=== PATIENT | male | born 1960 | race Caucasian/White ===

== ENCOUNTER 2021-01-18 07:33 | Day surgery (SDC) | payer BC ==
[~2021-01-18] VITALS: Ht 180.3 cm; Wt 107.8 kg
[~2021-01-18 07:33] MED LIST: FLOMAX 0.40.4 MG/CAP PO; NORCO 325 MG-51 TAB PO; ZOFRAN 4MG T4 MG/TAB PO
[2021-01-18 08:11] VITALS: BP 131/83; PULSE 99; TEMP 97.9
[2021-01-18] MEDS ORDERED: INSULIN AS100 UNIT/3 SQ (08:21)
[2021-01-18] MEDS ORDERED: CELEXA40 MG PO (08:21)
[2021-01-18] MEDS ORDERED: COZAAR 50MG50 MG/TAB PO (08:22)
[2021-01-18] MEDS ORDERED: LANTUS SOLOS100 U/ML SQ (08:22)
[2021-01-18] MEDS ORDERED: GLUCOPHAGE500 MG/TAB PO (08:22)
[2021-01-18] MEDS ORDERED: PRINIVIL5 MG PO (08:23)
[2021-01-18] MEDS ORDERED: LOPID 600M600 MG/TAB PO (08:23)
[2021-01-18] MEDS ORDERED: LIPITOR 10MG10 MG PO (08:24)
[2021-01-18] MEDS ORDERED: ZYRTEC ALLERGY10 MG PO (08:26)
[2021-01-18 09:30] VITALS: BP 114/78; PULSE 91; TEMP 97.7
[2021-01-18 09:45] VITALS: BP 116/83; PULSE 93
[2021-01-18 10:00] VITALS: BP 130/87; PULSE 85
--- NOTE | 2021-01-18 12:10 | NUR ---
PT RETURNED FROM ENDO PROCEDURE ROOM INTO BAY#4. A/OX3. TALKING WITH STAFF NURSES. LUNGS CLEAR, HRR, BOWEL SOUNDS HYPO/ PRESENT. STATES, 'IM STARVING'. PT REQUESTED BLUEBERRY MUFFIN, OJ AND WATER. DENIES PAIN, NAUSEA OR VOMITING. WILL CONTINE TO MONITOR PROGRESSION.
--- NOTE | 2021-01-18 12:14 | NUR ---
PT TOLERATING PO WELL. PT ALERT/ORIENTED AND WANT TO "LEAVE". IV DC'D TO RIGHT WRIST WITHOUT DIFFICULTY. DISMISSAL INSTRUCTIONS GIVEN, PT VOICES UNDERSTANDING. PT DISMISSED PER WC TO PT CAR, FRIEND, NIVIA DON WAS DRIVING.
== END 2021-01-18 10:15 | disposition home or self-care (01) ==
LOC: SDCO 07:33
DX: Z12.11 Encounter for screening for malignant neoplasm of colon (principal); D12.2 Benign neoplasm of ascending colon; D12.3 Benign neoplasm of transverse colon; D12.5 Benign neoplasm of sigmoid colon; D12.8 Benign neoplasm of rectum; D12.7 Benign neoplasm of rectosigmoid junction; K57.30 Diverticulosis of large intestine without perforation or abscess without bleeding; F17.210 Nicotine dependence, cigarettes, uncomplicated; E11.9 Type 2 diabetes mellitus without complications; Z20.822 Contact with and (suspected) exposure to COVID-19; Z79.4 Long term (current) use of insulin; Z79.899 Other long term (current) drug therapy; Z88.8 Allergy status to other drugs, medicaments and biological substances
CPT/HCPCS: J2704; J7120

== ENCOUNTER 2024-01-19 09:35 | Outpatient (RCR) | payer BC ==
[~2024-01-19 09:35] MED LIST changes: +CELEXA40 MG PO; +COZAAR 50MG50 MG/TAB PO; +GLUCOPHAGE500 MG/TAB PO; +INSULIN AS100 UNIT/3 SQ; +LANTUS SOLOS100 U/ML SQ; +LIPITOR 10MG10 MG PO; +LOPID 600M600 MG/TAB PO; +PRINIVIL5 MG PO; +ZYRTEC ALLERGY10 MG PO
== END 2024-01-28 | disposition home or self-care (01) ==
LOC: WSPT
DX: M54.42 Lumbago with sciatica, left side (principal); M54.6 Pain in thoracic spine